=== PATIENT | female | born 1960 | race Caucasian/White ===

== ENCOUNTER 2016-08-26 21:36 | Emergency (ER) | payer OTHER ==
[2016-08-26 22:20] VITALS: BP 132/82
--- NOTE | 2016-08-26 22:38 | PHYS DOC ---
Past History Smoking: Non-smoker Adult General HPI HPI Patient is a 55 year old female who presents with cut to left index finger. She got her finger caught in a window at her house. This occurred at 2110 PM. No other injuries. Review of Systems Review of Systems Musculoskeletal: finger pain Integument: laceration as noted Allergies Allergies Allergies Coded Allergies Type Severity Reaction Last Updated Verified codeine Allergy Intermediate 08/26/16 Yes Physical Exam Physical Exam Constitutional: Well developed, well nourished, no acute distress, non-toxic appearance. Extremities: Right index finger has a 2.0; laceration on the radial aspect at the distal fingertip. She has normal function noted. Normal sensation. Full range of motion at the DIP joint. Skin: laceration as noted Current Patient Data Vital Signs Vital Signs Date Time Temp Pulse Resp B/P (MAP) Pulse Ox O2 Delivery O2 Flow Rate FiO2 08/26/16 22:20 98.0 90 20 100 Room Air Radiology/Procedures Radiology/Procedures Xray of right hand: my interpretation shows no fracture; no foreign body Course & Med Decision Making Course & Med Decision Making Pertinent Imaging studies reviewed. (See chart for details) Wound repaired. No evidence of tendon injury. given retained foreign body precautions. Dragon Disclaimer Dragon Disclaimer This chart was dictated in whole or in part using Voice Recognition software in a busy, high-work load, and often noisy Emergency Department environment. It may contain unintended and wholly unrecognized errors or omissions. Departure Departure: Disposition: 01 HOME, SELF-CARE Condition: STABLE Referrals: SHAYLA JOEL MD (PCP) Laceration/Wound Repair Laceration/Wound Repair : Wound Location: upper extremity Wound's Depth, Shape: superficial Wound Length (cm): 2 Wound Explored: clean Betadine Prep?: Yes Anesthesia: 1% Lidocaine Volume Anesthetic (ccs): 3 Wound Repaired With: sutures Suture Size/Type: 4:0, nylon Number of Sutures: 5 Layer Closure?: No Sterile Dressing Applied?: Yes Splint Applied?: Yes Type of Splint Applied: CARLOS Zendejas MD August 26, 2016 22:38
[2016-08-26] MEDS ORDERED: LIDOCAINE 1% Multi-Dose 20 ML VIAL. IJ ONE (22:45)
--- NOTE | 2016-08-27 07:33 | RAD ---
Left hand, 3 views, 08/26/2016: History: Finger injury There is soft tissue deformity along the distal aspect of the index finger. No fracture or dislocation is identified. There are mild degenerative changes at scattered interphalangeal joints and the first CMC joint. IMPRESSION: No acute bony abnormality is detected.
== END 2016-08-27 00:50 | disposition home or self-care (01) ==
LOC: ER 21:40
DX: S61.211A Laceration without foreign body of left index finger without damage to nail, initial encounter (principal); Z88.6 Allergy status to analgesic agent; W23.0XXA Caught, crushed, jammed, or pinched between moving objects, initial encounter; Y93.89 Activity, other specified; Y99.8 Other external cause status; Y92.89 Other specified places as the place of occurrence of the external cause
CPT/HCPCS: 12001; 73130; 99284-25

== ENCOUNTER 2017-05-23 19:45 | Emergency (ER) | payer OTHER ==
[~2017-05-23] VITALS: Ht 175.3 cm; Wt 92.2 kg
--- NOTE | 2017-05-23 19:57 | ED.ADGEN ---
Past History Past Medical History: Cancer, Hypertension, Other Past Surgical History: Tonsillectomy Smoking: Non-smoker Alcohol Use: None Drug Use: None Adult General Chief Complaint Chief Complaint " I got a sore throat...".." I ve had it the last 24 hrs... " HPI HPI Patient is a 56 year old female who presents with above hx and complaints. Patient states her throat feels raw and swollen. Patient denies any travel. Patient denies any specific ill contacts. Patient does not get a flu vaccinations because she got sick one year after a vaccination. Patient does have a history of hypertension, and GERD, and dysphagia. Patient used to take Nexium for her reflux disease but has not taken it for the last 2 years. Has EGD was approximately 5 years ago. Pt. follows with Dr. Lay.. Patient reports some increasing dysphagia and reflux the last few months. Review of Systems Review of Systems Constitutional: Denies fever or chills [] Eyes: Denies change in visual acuity, redness, or eye pain [] HENT: Denies nasal congestion. Complaints of sore throat [] Respiratory: Denies cough or shortness of breath [] Cardiovascular: No additional information not addressed in HPI [] GI: Denies abdominal pain, nausea, vomiting, bloody stools or diarrhea [] : Denies dysuria or hematuria [] Musculoskeletal: Denies back pain or joint pain [] Integument: Denies rash or skin lesions [] Neurologic: Denies headache, focal weakness or sensory changes [] Endocrine: Denies polyuria or polydipsia [] All other systems were reviewed and found to be within normal limits, except as documented in this note. Family History Family History Noncontributory Current Medications Current Medications Current Medications Medications (Trade) Dose Ordered Sig/Kota Start Time Stop Time Status Last Admin Dose Admin Diphenhydramine HCl (Benadryl) 50 mg 1X ONCE 05/23/17 21:45 05/23/17 21:46 DC Famotidine (Pepcid) 20 mg 1X ONCE 05/23/17 21:30 05/23/17 21:36 DC 05/23/17 21:49 20 MG Hydrocodone Bitartrate/ Ibuprofen (Vicoprofen 7.5-200) 1 tab 1X ONCE 05/23/17 21:30 05/23/17 21:36 DC Prednisone (Prednisone) 50 mg 1X ONCE 05/23/17 20:30 05/23/17 20:31 DC 05/23/17 20:33 50 MG See nursing for home medications Allergies Allergies Allergies Coded Allergies Type Severity Reaction Last Updated Verified codeine Allergy Intermediate 08/26/16 Yes Penicillins Allergy Unknown 05/23/17 Yes Physical Exam Physical Exam Constitutional: Moderately acute distress, non-toxic appearance. [] HENT: Normocephalic, atraumatic, bilateral external ears normal, oropharynx moist, mild injection of pharynx, no oral exudates, nose rhinorrhea Eyes: PERRLA, EOMI, conjunctiva normal, no discharge. [] Neck: Normal range of motion, no tenderness, supple, no stridor. [] Cardiovascular:Heart rate regular rhythm, no murmur [] Lungs & Thorax: Bilateral breath sounds clear to auscultation [] Abdomen: Bowel sounds normal, soft, no tenderness, no masses, no pulsatile masses. [] Skin: Warm, dry, no erythema, no rash. [] Back: No tenderness, no CVA tenderness. [] Extremities: No tenderness, no cyanosis, no clubbing, ROM intact, no edema. [] Neurologic: Alert and oriented X 3, normal motor function, normal sensory function, no focal deficits noted. [] Psychologic: Affect anxious , judgement normal, mood normal. [] Current Patient Data Vital Signs Vital Signs Date Time Temp Pulse Resp B/P (MAP) Pulse Ox O2 Delivery O2 Flow Rate FiO2 05/23/17 21:40 66 20 125/78 (94) 100 Room Air 05/23/17 20:10 98.3 Lab Results Laboratory Tests Test 05/23/17 20:22 Influenza Type A (Rapid) Negative (NEGATIVE) Influenza Type B (Rapid) Negative (NEGATIVE) Group A Streptococcus Rapid Negative (NEGATIVE) EKG EKG [] Radiology/Procedures Radiology/Procedures [] Course & Med Decision Making Course & Med Decision Making Pertinent Labs and Imaging studies reviewed. (See chart for details). Gargle with Listerine 4 x day. Push fluids. Tylenol and Ibuprofen for fever and discomfort. Benadryl 25- 50 mg may be helpful for congestion. Would restart your antiacid because of the GERD complaints. Follow up with primary. Return if any concerns. [] Final Impression Final Impression 1. Pharyngitis[] 2. Viral Syndrome 3. GERD Problems: Dragon Disclaimer Dragon Disclaimer This electronic medical record was generated, in whole or in part, using a voice recognition dictation system. ANN-MARIE BATES MD May 23, 2017 19:57
[2017-05-23] MEDS ORDERED: predniSONE 10 MG TABLET PO ONE (20:30)
[2017-05-23] MEDS ORDERED: diphenhydrAMINE HCL 25 MG CAPSULE PO ONE ×2 (20:30→21:45)
[2017-05-23] MEDS ORDERED: HYDR-79 PO (20:57)
[2017-05-23] MEDS ORDERED: ESOM40CA PO (20:57)
[2017-05-23 21:20] LABS: INFLUENZA A PATIENT NEGATIVE (NEGATIVE); INFLUENZA B PATIENT NEGATIVE (NEGATIVE)
[2017-05-23] MEDS ORDERED: HYDROcodon/IBUPROFEN 7.5/200MG 1 TAB TABLET PO ONE (21:30)
[2017-05-23] MEDS ORDERED: FAMOTIDINE 20 MG TABLET PO ONE (21:30)
[2017-05-23 21:40] VITALS: BP 125/78
== END 2017-05-23 21:49 | disposition home or self-care (01) ==
LOC: ER 19:45
DX: B34.9 Viral infection, unspecified (principal); J02.9 Acute pharyngitis, unspecified; K21.9 Gastro-esophageal reflux disease without esophagitis; I10 Essential (primary) hypertension; Z88.0 Allergy status to penicillin; Z88.5 Allergy status to narcotic agent
CPT/HCPCS: 87070; 87804; 87880; 99284; J7512; Q0163